=== PATIENT | male | born 1980 | race Two or more races ===

== ENCOUNTER 2018-10-27 12:11 | Emergency (ER) | payer MEDICAID, OTHER ==
[~2018-10-27] VITALS: Ht 172.7 cm; Wt 88.0 kg
[2018-10-27] MEDS ORDERED: LIDOcaine 1% W/epiNEPHrine 1:100,000 20ml vial IJ ONE (13:10)
[2018-10-27] MEDS ORDERED: LIDOcaine 1% w/epiNEPHrine 1:200,000 30ml vial IM ONE (13:10)
[2018-10-27] MEDS ORDERED: TETanus/Pertussis (Acell)/Diphther VAC/PF (Tdap-Adult) 0.5ml syringe IM ONE (13:10)
[2018-10-27] MEDS ORDERED: CEPH-572 PO (13:48)
[2018-10-27 14:19] VITALS: BP 108/53
== END 2018-10-27 14:21 | disposition home or self-care (01) ==
LOC: ER 12:12
DX: S60.453A Superficial foreign body of left middle finger, initial encounter (principal); S60.352A Superficial foreign body of left thumb, initial encounter; F10.99 Alcohol use, unspecified with unspecified alcohol-induced disorder; Z79.899 Other long term (current) drug therapy; W45.8XXA Other foreign body or object entering through skin, initial encounter; Y93.89 Activity, other specified; Y92.89 Other specified places as the place of occurrence of the external cause; Y99.8 Other external cause status; Y90.9 Presence of alcohol in blood, level not specified
CPT/HCPCS: 90471; 99283; 99284

== ENCOUNTER 2019-02-28 22:47 | Emergency (ER) | payer MEDICAID ==
[~2019-02-28] VITALS: Ht 172.7 cm; Wt 95.5 kg
--- NOTE | 2019-03-01 00:10 | NUR ---
Dominique Martinez PA-C is with the patient now.
[2019-03-01] MEDS ORDERED: cyclobenzaprine 10mg tablet PO ONE (00:15)
[2019-03-01] MEDS ORDERED: CYCL-1 PO (00:24)
[2019-03-01 00:41] VITALS: BP 134/86
== END 2019-03-01 00:48 | disposition home or self-care (01) ==
LOC: ER 22:48
DX: M54.2 Cervicalgia (principal); F17.210 Nicotine dependence, cigarettes, uncomplicated
CPT/HCPCS: 99283